=== PATIENT | male | born 1990 | race Caucasian/White ===

== ENCOUNTER 2016-12-06 03:29 | Emergency (ER) | payer OTHER ==
[~2016-12-06] VITALS: Ht 172.7 cm; Wt 81.8 kg
[~2016-12-06 03:29] MED LIST: ACETAMINOPHEN650 M7 PO; ANAPROX DS550 M1 PO; BENTYL20 MG PO; CELEXA20 MG PO; CLINDAMYCIN HC300 MG PO; FLEXERIL10 MG PO; FLOMAX0.4 MG PO; GABAPENTIN600 MG PO; IBUPROFEN400 MG PO; IBUPROFEN600 MG PO; KEFLEX500 MG PO; LEVAQUIN500 MG PO; LEXAPRO10 MG PO; LEXAPRO20 MG PO; MEDROL DOSEPAK4 MG PO; MOTRIN600 MG PO; NAPROSYN500 MG PO; NOHOMEMEDS; OXYCODONE-APAP1 EAC6 PO; PERCOCET 5/31 TABLET PO; PERCOCET 7.51 TABLET PO; PREDNISONE10 M1 PO; PROMETHAZINE HC25 M1 PO; ROBITUSSIN AC,T10 ML PO; SEROQUEL400 MG PO; THERAPEUTIC M PO; TOPROL XL50 MG PO; TRAMADOL HCL50 MG PO; VIBRAMYCIN100 MG PO
[2016-12-06 04:07] LABS: HEMATOCRIT 44.1 % (38.0-50.0); MCH 31.8 PG (29.0-34.0); MCHC 34.7 G/DL (30.0-36.0); MCV 91.7 FL (86-99); MEAN PLAT.VOLUME 11.2 uM^3 (9.0-12.4); PLATELET COUNT 145 K/uL (156-360); RBC DIS.WIDTH-CV 12.9 % (11.8-14.6); RBC DIS.WIDTH-SD 42.3 % (39-53); RED BLOOD COUNT 4.81 M/uL (4.00-5.50); WHITE BLOOD COUNT 11.9 K/uL (4.1-10.2)
[2016-12-06 04:15] LABS: CHLORIDE 107 mEq/L (99-109); POTASSIUM 4.5 mEq/L (3.7-5.4); SODIUM 142 mEq/L (136-147)
[2016-12-06 04:18] LABS: GLUCOSE 110 mg/dL (70-99)
[2016-12-06 04:19] LABS: ANION GAP 13 MEQ/L (2-14)
[2016-12-06 04:20] LABS: TOTAL BILIRUBIN 0.8 mg/dL (0.0-1.0)
[2016-12-06 04:21] LABS: ALKALINE PHOSPHATASE 75 IU/L (3-129); GFR ESTIMATE (CALCULATED) > 59 mL/min/
[2016-12-06 04:22] LABS: UREA NITROGEN (BUN) 14 mg/dL (9-23)
[2016-12-06 04:43] LABS: SERUM ETHYL ALCOHOL < 10 mg/dL
[2016-12-06 06:12] LABS: ADD MIUA? YES; BILIRUBIN NEGATIVE; BLOOD NEGATIVE; COLOR YELLOW ((YELLOW)); GLUCOSE (STRIP) NEGATIVE; KETONES NEGATIVE; LEUKOCYTES TRACE; NITRITE NEGATIVE; PROTEIN (STRIP) NEGATIVE; SPECIFIC GRAVITY 1.019 (1.000-1.030); UROBILINOGEN 0.2 MG/DL (0.2-1.0)
[2016-12-06 06:19] LABS: AMPHETAMINE NEGATIVE (500 ng/mL); BARBITURATES NEGATIVE (200 ng/mL); BENZODIAZEPINES NEGATIVE (150 ng/mL); COCAINE NEGATIVE (150 ng/mL); INTERNAL CONTROLS VALID? YES; METHADONE NEGATIVE (200 ng/mL); METHAMPHETAMINE NEGATIVE (500 ng/mL); OPIATES (MORPHINE) NEGATIVE (100 ng/mL); OXYCODONE NEGATIVE (100 ng/mL); PHENCYCLIDINE NEGATIVE (25 ng/mL); PROPOXYPHENE NEGATIVE (300 ng/mL); THC CANNABINOIDS PRESUMPTIVE POSITIVE (50 ng/mL); TRICYCLIC ANTIDEPRESSANTS NEGATIVE (300 ng/mL)
[2016-12-06 06:20] LABS: ADD MEDTOX COMMENT Y
[2016-12-06 06:32] LABS: EPITHELIAL CELLS RARE; RED BLOOD CELLS 0-5 /HPF (0-5)
[2016-12-06 06:33] LABS: BACTERIA RARE; CASTS NONE SEEN /LPF; CRYSTALS NONE SEEN; MUCUS NONE SEEN; UCUL ADDED? NO
[2016-12-06] MEDS ORDERED: CIPRO500 MG PO (07:05)
[2016-12-06 07:19] VITALS: BP 113/65
== END 2016-12-06 07:19 | disposition home or self-care (01) ==
LOC: EME 03:29
PROVIDERS: Emergency Medicine
DX: F31.32 Bipolar disorder, current episode depressed, moderate (principal); N39.0 Urinary tract infection, site not specified; F10.129 Alcohol abuse with intoxication, unspecified; Z87.820 Personal history of traumatic brain injury
CPT/HCPCS: 80053; 81003; 84999; 85027; 87086; 90839; 99281; 99285; G0480; J1885; J2405; J7030

== ENCOUNTER 2017-01-10 20:18 | Emergency (ER) | payer OTHER ==
[~2017-01-10] VITALS: Ht 172.7 cm; Wt 81.0 kg
[~2017-01-10 20:18] MED LIST changes: +CIPRO500 MG PO
[2017-01-10 21:51] LABS: HEMATOCRIT 41.8 % (38.0-50.0); MCH 31.3 PG (29.0-34.0); MCHC 34.2 G/DL (30.0-36.0); MCV 91.5 FL (86-99); MEAN PLAT.VOLUME 11.7 uM^3 (9.0-12.4); PLATELET COUNT 154 K/uL (156-360); RBC DIS.WIDTH-CV 12.8 % (11.8-14.6); RBC DIS.WIDTH-SD 41.8 % (39-53); RED BLOOD COUNT 4.57 M/uL (4.00-5.50)
[2017-01-10 22:00] LABS: ADD MIUA? NO; BILIRUBIN NEGATIVE; BLOOD NEGATIVE; COLOR YELLOW ((YELLOW)); GLUCOSE (STRIP) NEGATIVE; KETONES TRACE; LEUKOCYTES NEGATIVE; NITRITE NEGATIVE; PROTEIN (STRIP) NEGATIVE; SPECIFIC GRAVITY 1.022 (1.000-1.030); UCUL ADDED? NO; UROBILINOGEN 0.2 MG/DL (0.2-1.0)
[2017-01-10 22:03] LABS: CHLORIDE 107 mEq/L (99-109); POTASSIUM 3.5 mEq/L (3.7-5.4); SODIUM 141 mEq/L (136-147)
[2017-01-10 22:06] LABS: GLUCOSE 98 mg/dL (70-99)
[2017-01-10 22:07] LABS: ANION GAP 8 MEQ/L (2-14); TOTAL BILIRUBIN 0.5 mg/dL (0.0-1.0)
[2017-01-10 22:09] LABS: ALKALINE PHOSPHATASE 81 IU/L (3-129); GFR ESTIMATE (CALCULATED) > 59 mL/min/; SERUM ETHYL ALCOHOL < 10 mg/dL
[2017-01-10 22:10] LABS: UREA NITROGEN (BUN) 13 mg/dL (9-23)
[2017-01-10 22:13] LABS: LIPASE 86 U/L (1.0-51.0)
[2017-01-10 22:26] LABS: AMPHETAMINE NEGATIVE (500 ng/mL); BARBITURATES NEGATIVE (200 ng/mL); BENZODIAZEPINES NEGATIVE (150 ng/mL); COCAINE NEGATIVE (150 ng/mL); INTERNAL CONTROLS VALID? YES; METHADONE NEGATIVE (200 ng/mL); METHAMPHETAMINE NEGATIVE (500 ng/mL); OPIATES (MORPHINE) PRESUMPTIVE POSITIVE (100 ng/mL); OXYCODONE NEGATIVE (100 ng/mL); PHENCYCLIDINE NEGATIVE (25 ng/mL); PROPOXYPHENE NEGATIVE (300 ng/mL); THC CANNABINOIDS PRESUMPTIVE POSITIVE (50 ng/mL); TRICYCLIC ANTIDEPRESSANTS NEGATIVE (300 ng/mL)
[2017-01-10 22:27] LABS: ADD MEDTOX COMMENT Y
[2017-01-10 23:07] VITALS: BP 108/75
== END 2017-01-10 23:07 | disposition home or self-care (01) ==
LOC: EME 20:18
PROVIDERS: Emergency Medicine
DX: F31.32 Bipolar disorder, current episode depressed, moderate (principal); M25.552 Pain in left hip; R11.2 Nausea with vomiting, unspecified; R19.7 Diarrhea, unspecified; G89.29 Other chronic pain; Z79.891 Long term (current) use of opiate analgesic; F17.200 Nicotine dependence, unspecified, uncomplicated
CPT/HCPCS: 73502; 80053; 81003; 83690; 84999; 85027; 90839; 99281; 99284; G0480

== ENCOUNTER 2017-01-12 20:06 | Emergency (ER) | payer OTHER ==
[~2017-01-12] VITALS: Ht 172.7 cm; Wt 81.5 kg
[2017-01-12 21:14] LABS: HEMATOCRIT 39.7 % (38.0-50.0); MCH 30.8 PG (29.0-34.0); MCHC 34.3 G/DL (30.0-36.0); MCV 89.8 FL (86-99); MEAN PLAT.VOLUME 11.3 uM^3 (9.0-12.4); PLATELET COUNT 156 K/uL (156-360); RBC DIS.WIDTH-CV 12.7 % (11.8-14.6); RBC DIS.WIDTH-SD 41.2 % (39-53); RED BLOOD COUNT 4.42 M/uL (4.00-5.50); WHITE BLOOD COUNT 9.2 K/uL (4.1-10.2)
[2017-01-12 21:23] LABS: CHLORIDE 109 mEq/L (99-109); POTASSIUM 3.8 mEq/L (3.7-5.4); SODIUM 144 mEq/L (136-147)
[2017-01-12 21:25] LABS: GLUCOSE 105 mg/dL (70-99)
[2017-01-12 21:26] LABS: ANION GAP 10 MEQ/L (2-14)
[2017-01-12 21:27] LABS: TOTAL BILIRUBIN 0.4 mg/dL (0.0-1.0)
[2017-01-12 21:28] LABS: ALKALINE PHOSPHATASE 76 IU/L (3-129); SERUM ETHYL ALCOHOL < 10 mg/dL
[2017-01-12 21:29] LABS: GFR ESTIMATE (CALCULATED) > 59 mL/min/
[2017-01-12 21:30] LABS: UREA NITROGEN (BUN) 13 mg/dL (9-23)
[2017-01-12 23:32] LABS: ADD MIUA? NO; BILIRUBIN NEGATIVE; BLOOD NEGATIVE; COLOR YELLOW ((YELLOW)); GLUCOSE (STRIP) NEGATIVE; KETONES 5; LEUKOCYTES NEGATIVE; NITRITE NEGATIVE; PROTEIN (STRIP) NEGATIVE; SPECIFIC GRAVITY 1.017 (1.000-1.030)
[2017-01-12 23:38] LABS: AMPHETAMINE NEGATIVE (500 ng/mL); BARBITURATES NEGATIVE (200 ng/mL); BENZODIAZEPINES NEGATIVE (150 ng/mL); COCAINE NEGATIVE (150 ng/mL); INTERNAL CONTROLS VALID? YES; METHADONE NEGATIVE (200 ng/mL); METHAMPHETAMINE NEGATIVE (500 ng/mL); OPIATES (MORPHINE) PRESUMPTIVE POSITIVE (100 ng/mL); OXYCODONE PRESUMPTIVE POSITIVE (100 ng/mL); PHENCYCLIDINE NEGATIVE (25 ng/mL); PROPOXYPHENE NEGATIVE (300 ng/mL); THC CANNABINOIDS PRESUMPTIVE POSITIVE (50 ng/mL); TRICYCLIC ANTIDEPRESSANTS NEGATIVE (300 ng/mL)
[2017-01-12 23:39] LABS: ADD MEDTOX COMMENT Y
[2017-01-13 00:57] VITALS: BP 126/86
[2017-01-13 05:00] LABS: OPIATES QUANTITATIVE VALUE 0 NG/ML
== END 2017-01-13 01:00 | disposition home or self-care (01) ==
LOC: EME 20:06
PROVIDERS: Emergency Medicine
DX: F31.32 Bipolar disorder, current episode depressed, moderate (principal); F19.10 Other psychoactive substance abuse, uncomplicated; F12.20 Cannabis dependence, uncomplicated; Z87.820 Personal history of traumatic brain injury; J45.909 Unspecified asthma, uncomplicated; F17.200 Nicotine dependence, unspecified, uncomplicated
CPT/HCPCS: 80053; 81003; 84999; 85027; 90839; 99281; 99285; G0480

== ENCOUNTER 2017-01-24 00:21 | Emergency (ER) | payer OTHER ==
[~2017-01-24] VITALS: Ht 172.7 cm; Wt 83.9 kg
[2017-01-24 01:14] VITALS: BP 107/76
== END 2017-01-24 01:15 | disposition home or self-care (01) ==
LOC: EXP 00:21 → EME 00:21 → EXP 01:15
DX: S61.211A Laceration without foreign body of left index finger without damage to nail, initial encounter (principal); W26.8XXA Contact with other sharp object(s), not elsewhere classified, initial encounter; Y93.89 Activity, other specified
CPT/HCPCS: 99281; 99284

== ENCOUNTER 2017-12-20 10:23 | Emergency (ER) | payer OTHER ==
[~2017-12-20] VITALS: Ht 172.7 cm; Wt 85.1 kg
[2017-12-20 13:51] VITALS: BP 124/81
== END 2017-12-20 13:51 | disposition home or self-care (01) ==
LOC: EME 10:23
DX: S00.81XA Abrasion of other part of head, initial encounter (principal); W10.9XXA Fall (on) (from) unspecified stairs and steps, initial encounter; Y93.01 Activity, walking, marching and hiking; J45.909 Unspecified asthma, uncomplicated; G89.29 Other chronic pain; F32.9 Major depressive disorder, single episode, unspecified; F90.9 Attention-deficit hyperactivity disorder, unspecified type; F17.200 Nicotine dependence, unspecified, uncomplicated; Z88.2 Allergy status to sulfonamides
CPT/HCPCS: 99281; 99283